=== PATIENT | male | born 1965 | race African-American/Black ===

== ENCOUNTER 2023-05-29 21:35 | Emergency (ER) | payer MEDICAID ==
[~2023-05-29] VITALS: Ht 177.8 cm; Wt 92.0 kg
[2023-05-29 21:46] VITALS: BP 130/110; TEMP 98.2; O2SAT 100
[2023-05-29 21:55] VITALS: PULSE 99; RESP 16
[2023-05-29] MEDS: IBUPROFEN 600MG TABLET PO ONE (23:33)
== END 2023-05-30 01:47 | disposition home or self-care (01) ==
LOC: ER 21:35
DX: M79.671 Pain in right foot (principal); M79.672 Pain in left foot; E11.9 Type 2 diabetes mellitus without complications
CPT/HCPCS: 99282; Z7610

== ENCOUNTER 2023-05-30 17:03 | Emergency (ER) | payer MEDICAID ==
[~2023-05-30] VITALS: Ht 175.3 cm; Wt 90.0 kg
[2023-05-30 17:18] VITALS: O2SAT 97
[2023-05-30] MEDS: ACETAMINOPHEN 325MG TABLET PO ONE (18:15)
[2023-05-30 19:31] VITALS: BP 137/77; PULSE 89; RESP 20; TEMP 98
== END 2023-05-30 19:32 | disposition home or self-care (01) ==
LOC: ER 17:15
DX: M79.671 Pain in right foot (principal); M79.672 Pain in left foot; E11.9 Type 2 diabetes mellitus without complications; Z88.0 Allergy status to penicillin
CPT/HCPCS: 99282